=== PATIENT | female | born 1955 | race American Indian/Alaskan Native ===

== ENCOUNTER 2019-01-26 12:19 | Outpatient (CLI) | payer BC ==
--- NOTE | 2019-01-29 11:28 | Mammography Report ---
BILATERAL DIGITAL SCREENING MAMMOGRAMS WITH CAD INDICATION: Screening. COMPARISONS: 05/28/2015 and 05/06/2014 FINDINGS: Craniocaudal and mediolateral oblique views of both breasts were obtained using 2-D digital acquisition. In addition to standard review, the examination was analyzed for possible abnormalities using a computer-assisted detection device (iCAD). The breast tissue is heterogeneously dense, which may obscure small masses. A left asymmetry with architectural distortion on the CC view requires additional imaging. No suspici ous calcifications. The right breast is negative. IMPRESSION: Left asymmetry requiring additional imaging. Recommend recall for left true lateral, rolled CC and sp ot compression CC views and left breast ultrasound if needed. BI-RADS CATEGORY 0: INCOMPLETE - NEED ADDITIONAL IMAGING EVALUATION AND/OR PRIOR MAMMOGRAMS FOR COMP ARISON Information is entered into a reminder system for a target due date for the next mammogram. The resul ts and recommendations were sent to the patient by mail. Signer Name: Raphael Thakur MD Signed: 01/29/2019 11:23 AM Workstation Name: [id number]
== END 2019-01-26 12:20 | disposition home or self-care (01) ==
LOC: MAMMO 12:19
PROVIDERS: ATTEND Internal Medicine
DX: Z12.31 Encounter for screening mammogram for malignant neoplasm of breast (principal); E78.00 Pure hypercholesterolemia, unspecified; K21.9 Gastro-esophageal reflux disease without esophagitis; I11.0 Hypertensive heart disease with heart failure; I50.9 Heart failure, unspecified
CPT/HCPCS: 77067

== ENCOUNTER 2019-06-22 10:07 | Outpatient (CLI) | payer BC ==
--- NOTE | 2019-06-22 12:04 | Mammography Report ---
DIGITAL DIAGNOSTIC MAMMOGRAM WITH CAD, -- 06/22/2019 INDICATION: Questionable developing architectural distortion left breast. [reason for study] TECHNIQUE: Digital left mammographic imaging was performed. This examination was interpreted with the benefit of Computer-aided Detection analysis. COMPARISON: Screening mammogram dated 01/26/2019 and prior mammograms dated 05/28/2015, 05/27/2014 and 05/06/2014 FINDINGS: Breast Density: The breasts are heterogeneously dense, which may obscure small masses. Architectural distortion resolves on additional imaging. No focal asymmetric density persists on elias tional imaging. There is no change when compared with prior mammograms dating back to 2013. IMPRESSION: Follow up recommendation: Routine yearly BI-RADS Category 1: Negative. A "normal" or negative report should not discourage follow up or biopsy of a clinically significant f inding. A written summary of these findings will be mailed to the patient. The patient will be entered into a mammography reporting system which will generate a reminder letter for the patient's next appointmen t at the appropriate interval. According to the [employer], yearly mammograms are recommended starting at age 40 and continuing as long as a woman is in good health. Breast MRI is recommended for women with an ruel roximately 20-25% or greater lifetime risk of breast cancer, including women with a strong family his tory of breast or ovarian cancer and women who have been treated for Hodgkin's disease. Signer Name: Haleigh Ordonez MD Signed: 06/22/2019 12:00 PM Workstation Name: [id number]
== END 2019-06-22 10:08 | disposition home or self-care (01) ==
LOC: US 10:07
PROVIDERS: ATTEND Family Medicine
DX: R92.8 Other abnormal and inconclusive findings on diagnostic imaging of breast (principal); I11.0 Hypertensive heart disease with heart failure; I50.9 Heart failure, unspecified; I25.10 Atherosclerotic heart disease of native coronary artery without angina pectoris; E78.5 Hyperlipidemia, unspecified; K21.9 Gastro-esophageal reflux disease without esophagitis; Z87.891 Personal history of nicotine dependence

== ENCOUNTER 2020-02-03 07:32 | Emergency (ER) | payer BC ==
[2020-02-03 08:50] LABS: Basophils % (Auto) 0.4 % (0.0-1.8); Eosinophils # (Auto) 0.1 K/mm3 (0.0-0.4); Eosinophils % (Auto) 2.4 % (0.0-4.3); Hematocrit 38.7 % (30.3-42.9); Hemoglobin 12.8 gm/dl (10.1-14.3); Lymphocytes # (Auto) 1.4 K/mm3 (1.2-5.4); Lymphocytes % (Auto) 27.1 % (13.4-35.0); Mean Corpuscular HGB Conc 33 % (30-34); Mean Corpuscular Volume 91 fl (79-97); Monocytes # (Auto) 0.4 K/mm3 (0.0-0.8); Monocytes % (Auto) 7.9 % (0.0-7.3); Platelet Count 278 K/mm3 (140-440); Red Blood Count 4.24 M/mm3 (3.65-5.03); Red Cell Distribution Width 13.9 % (13.2-15.2)
[2020-02-03 09:32] LABS: Alanine Aminotransferase 16 units/L (7-56); Albumin 4.1 g/dL (3.9-5); BUN/Creatinine Ratio 11; Blood Urea Nitrogen 10 mg/dL (7-17); Calcium 9.6 mg/dL (8.4-10.2); Hemolysis Index 11
--- NOTE | 2020-02-03 10:45 | XRay Report ---
CHEST 2 VIEWS INDICATION / CLINICAL INFORMATION: Shortness of breath since . COMPARISON: 11/08/15. FINDINGS: SUPPORT DEVICES: None. HEART / MEDIASTINUM: The heart is mildly enlarged. There is mild prominence of the central pulmonary vessels. LUNGS / PLEURA: There is mild to moderate diffuse interstitial lung disease, new since the prior exam . There is more confluent mild patchy parenchymal disease in the lower lung zones, greater on the rig ht. No significant pleural effusion. No pneumothorax. ADDITIONAL FINDINGS: No significant additional findings. IMPRESSION: Findings characteristic of mild congestive heart failure. Signer Name: Jitendra Nina MD Signed: 02/03/2020 10:41 AM Workstation Name: [id number]
[2020-02-03] MEDS ORDERED: FUROSEMIDE 40 MG/4 ML INJ IV ONE (15:32)
--- NOTE | 2020-02-03 15:36 | Emergency Department Report ---
ED Shortness of Breath HPI - General Chief Complaint: Dyspnea/Respdistress Stated Complaint: SOB Time Seen by Provider: 02/03/20 15:09 Source: patient Mode of arrival: Ambulatory Limitations: No Limitations - History of Present Illness Initial Comments: 64 years old female with history of congestive heart failure and hypertension. Patient presented to the ER complaining of shortness of breath and cough for the last 4 days. Patient stated that symptoms worse when she lay flat. Patient denied any chest pain, fever, chills, runny nose or congestion. Patient also denied any nausea or vomiting. Patient is not taking any diuretics at this moment. MD Complaint: shortness of breath, cough -: days(s) (4) Known History Of: congestive heart failure - Related Data Home Medications Medication Instructions Recorded Confirmed Last Taken Clopidogrel [Plavix] 75 mg PO QDAY 11/08/15 05/19/17 05/19/17 Aspirin [Adult Low Dose Aspirin EC] 81 mg PO QDAY 05/19/17 05/19/17 05/19/17 AtorvaSTATin [Lipitor] 20 mg PO QDAY 05/19/17 05/19/17 05/19/17 carvediloL [Coreg] 25 mg PO BID 05/19/17 05/19/17 05/19/17 Previous Rx's Medication Instructions Recorded Last Taken Type Pantoprazole [Protonix TAB] 40 mg PO Q12H #60 tablet 05/21/17 Unknown Rx cloNIDine-TTS PATCH [Catapres-Tts 0.2 mg TD Q7D #4 patch 05/21/17 Unknown Rx 0.2mg Patch] Allergies Allergy/AdvReac Type Severity Reaction Status Date / Time No Known Allergies Allergy Unverified 03/21/13 15:53 ED Review of Systems ROS: Stated complaint: SOB Other details as noted in HPI Comment: All other systems reviewed and negative Constitutional: denies: chills Respiratory: cough, orthopnea, shortness of breath, SOB with exertion, SOB at rest. denies: wheezing Cardiovascular: denies: chest pain, palpitations Gastrointestinal: denies: abdominal pain, nausea, vomiting Musculoskeletal: denies: back pain ED Past Medical Hx - Past Medical History Previous Medical History?: Yes Hx Hypertension: Yes Hx Heart Attack/AMI: Yes (2006) Hx Congestive Heart Failure: Yes Hx Diabetes: No Hx Renal Disease: Yes (lupus nephritis) Hx Seizures: No Hx Asthma: No Hx COPD: No Additional medical history: ulcer, lupus - Surgical History Past Surgical History?: Yes Hx Coronary Stent: Yes Additional Surgical History: thyroid surgery - Social History Smoking Status: Former Smoker Substance Use Type: Alcohol - Medications Home Medications: Home Medications Medication Instructions Recorded Confirmed Last Taken Type Clopidogrel [Plavix] 75 mg PO QDAY 11/08/15 05/19/17 05/19/17 History Aspirin [Adult Low Dose Aspirin EC] 81 mg PO QDAY 05/19/17 05/19/17 05/19/17 History AtorvaSTATin [Lipitor] 20 mg PO QDAY 05/19/17 05/19/17 05/19/17 History carvediloL [Coreg] 25 mg PO BID 05/19/17 05/19/17 05/19/17 History Pantoprazole [Protonix TAB] 40 mg PO Q12H #60 tablet 05/21/17 Unknown Rx cloNIDine-TTS PATCH [Catapres-Tts 0.2 mg TD Q7D #4 patch 05/21/17 Unknown Rx 0.2mg Patch] ED Physical Exam - General Limitations: No Limitations General appearance: alert, in no apparent distress - Head Head exam: Present: atraumatic, normocephalic, normal inspection - Eye Eye exam: Present: normal appearance - ENT ENT exam: Present: normal exam, normal orophraynx, mucous membranes moist - Neck Neck exam: Present: normal inspection, full ROM. Absent: tenderness, meningismus, lymphadenopathy, thyromegaly - Respiratory Respiratory exam: Present: normal lung sounds bilaterally - Cardiovascular Cardiovascular Exam: Present: regular rate, normal rhythm, normal heart sounds - GI/Abdominal GI/Abdominal exam: Present: soft, normal bowel sounds. Absent: distended, tenderness, guarding, rebound, rigid, organomegaly, mass, bruit, pulsatile mass, hernia - Extremities Exam Extremities exam: Present: normal inspection, full ROM, normal capillary refill. Absent: pedal edema, calf tenderness - Back Exam Back exam: Present: normal inspection, full ROM. Absent: CVA tenderness (R), CVA tenderness (L) - Neurological Exam Neurological exam: Present: alert, oriented X3, CN II-XII intact, normal gait, reflexes normal. Absent: motor sensory deficit - Psychiatric Psychiatric exam: Present: normal mood - Skin Skin exam: Present: warm, intact, normal color ED Course Vital Signs 02/03/20 02/03/20 02/03/20 07:42 11:46 15:09 Temperature 97.8 F Pulse Rate 87 64 Respiratory 22 18 Rate Blood Pressure 189/114 145/64 Blood Pressure [Left] O2 Sat by Pulse 98 98 Oximetry 02/03/20 02/03/20 15:10 17:44 Temperature 97.9 F Pulse Rate 81 81 Respiratory 18 Rate Blood Pressure 185/107 Blood Pressure 189/115 [Left] O2 Sat by Pulse Oximetry ED Medical Decision Making - Lab Data Result diagrams: 02/03/20 08:04 02/03/20 08:04 - EKG Data -: EKG Interpreted by Sc EKG shows normal: sinus rhythm Rate: normal - EKG Data Interpretation: no acute changes - Radiology Data Radiology results: report reviewed - Medical Decision Making 64 years old female with history of congestive heart failure and hypertension. Patient presented to the ER complaining of shortness of breath and cough for the last 4 days. Patient stated that symptoms worse when she lay flat. Patient denied any chest pain, fever, chills, runny nose or congestion. Patient also denied any nausea or vomiting. Patient is not taking any diuretics at this moment. EKG showed no ST elevation. Chest x-ray showed mild congestion secondary to congestive heart failure. Patient oxygen saturation remained above 97% on room air. Labs reviewed and is unremarkable. Patient received Lasix 60 mg IV in the emergency room and clonidine for her malignant hypertension. Patient strongly advised to follow-up with her drive away driver and her primary care physician in the next 2 to 3 days and to return to the ER if she develop any new symptoms Critical care attestation.: If time is entered above; I have spent that time in minutes in the direct care of this critically ill patient, excluding procedure time. ED Disposition Clinical Impression: Accelerated essential hypertension, CHF exacerbation Disposition: -01 TO HOME OR SELFCARE Is pt being admited?: No Condition: Stable Instructions: Hypertension (ED) Referrals: PRIMARY CARE, [Primary Care Provider] - 3-5 Days
[2020-02-03] MEDS ORDERED: NITROGLYCERIN 0.4 MG TAB SUBL SL ONE (17:36)
[2020-02-03] MEDS ORDERED: cloNIDine 0.2 MG TAB PO ONE (17:39)
[2020-02-03 19:22] VITALS: BP 163/94
== END 2020-02-03 19:33 | disposition home or self-care (01) ==
LOC: ED 07:32
DX: I11.0 Hypertensive heart disease with heart failure (principal); I50.9 Heart failure, unspecified; I25.2 Old myocardial infarction; Z87.891 Personal history of nicotine dependence; Z95.818 Presence of other cardiac implants and grafts; Z98.890 Other specified postprocedural states; Z79.899 Other long term (current) drug therapy
CPT/HCPCS: 36415; 71046; 80053; 83880; 84484; 85025; 93005; 96374; 99284; J1940

== ENCOUNTER 2020-02-19 05:12 | Emergency (ER) | payer BC ==
--- NOTE | 2020-02-19 06:31 | XRay Report ---
CHEST 1 VIEW 0627 INDICATION / CLINICAL INFORMATION: Chest Pain COMPARISON: 02/03/2020 FINDINGS: SUPPORT DEVICES: None HEART / MEDIASTINUM: No significant abnormality. LUNGS / PLEURA: Increased interstitial markings are again noted diffusely. The basilar infiltrates se en previously have improved however. No definite new infiltrates are seen. No pneumothorax. ADDITIONAL FINDINGS: No significant additional findings. IMPRESSION: Improved infiltrates Signer Name: Esteban Hemphill MD Signed: 02/19/2020 6:26 AM Workstation Name: [id number]
[2020-02-19 06:36] LABS: Basophils % (Auto) 0.4 % (0.0-1.8); Eosinophils # (Auto) 0.2 K/mm3 (0.0-0.4); Eosinophils % (Auto) 2.8 % (0.0-4.3); Hematocrit 34.8 % (30.3-42.9); Hemoglobin 11.9 gm/dl (10.1-14.3); Lymphocytes # (Auto) 1.7 K/mm3 (1.2-5.4); Lymphocytes % (Auto) 23.2 % (13.4-35.0); Mean Corpuscular HGB Conc 34 % (30-34); Mean Corpuscular Volume 91 fl (79-97); Monocytes # (Auto) 0.6 K/mm3 (0.0-0.8); Monocytes % (Auto) 7.9 % (0.0-7.3); Platelet Count 247 K/mm3 (140-440); Red Blood Count 3.85 M/mm3 (3.65-5.03); Red Cell Distribution Width 13.4 % (13.2-15.2)
[2020-02-19 06:41] LABS: BUN/Creatinine Ratio 11; Blood Urea Nitrogen 10 mg/dL (7-17); Calcium 9.1 mg/dL (8.4-10.2); Hemolysis Index 2
--- NOTE | 2020-02-19 13:31 | Emergency Department Report ---
ED Shortness of Breath HPI - General Chief Complaint: Dyspnea/Respdistress Stated Complaint: SHORTNESS OF BREATH Time Seen by Provider: 02/19/20 12:23 Source: patient Mode of arrival: Ambulatory Limitations: No Limitations - History of Present Illness Initial Comments: Chief complaint: "I am worried about my health." Mrs. Horowitz is a 64-year-old female with history of congestive heart failure hypertension who presents with shortness of breath with exertion. She states that her symptoms improved after she was evaluated by my colleague February 03 14 days ago. My colleague prescribed furosemide and potassium tablets. He provided 7-day prescription. Her PCP was uncomfortable prescribing this medication. PCP referred her to a shuttlecock feather trimmer. Appointment has been set for February 28 in 10 days. Patient requests prescription for furosemide. While at rest she is comfortable. She has shortness of breath when she lays flat. She denies chest pain. She has had mild cough no wheezing. No fever. MD Complaint: shortness of breath -: Gradual, days(s) (Several days) Severity: mild Consistency: constant Improves With: rest Worsens With: lying flat Known History Of: congestive heart failure - Related Data Home Medications Medication Instructions Recorded Confirmed Last Taken Clopidogrel [Plavix] 75 mg PO QDAY 11/08/15 05/19/17 05/19/17 Aspirin [Adult Low Dose Aspirin EC] 81 mg PO QDAY 05/19/17 05/19/17 05/19/17 AtorvaSTATin [Lipitor] 20 mg PO QDAY 05/19/17 05/19/17 05/19/17 carvediloL [Coreg] 25 mg PO BID 05/19/17 05/19/17 05/19/17 Previous Rx's Medication Instructions Recorded Last Taken Type Pantoprazole [Protonix TAB] 40 mg PO Q12H #60 tablet 05/21/17 Unknown Rx cloNIDine-TTS PATCH [Catapres-Tts 0.2 mg TD Q7D #4 patch 05/21/17 Unknown Rx 0.2mg Patch] Furosemide [Lasix TAB] 40 mg PO QDAY #7 tablet 02/03/20 Unknown Rx Potassium Chloride [K-Dur] 10 meq PO QDAY #7 tablet 02/03/20 Unknown Rx Furosemide [Lasix TAB] 40 mg PO QDAY 10 Days #10 tablet 02/19/20 Unknown Rx Potassium Chloride [K-Dur] 10 meq PO QDAY 10 Days #10 tablet 02/19/20 Unknown Rx Allergies Allergy/AdvReac Type Severity Reaction Status Date / Time No Known Allergies Allergy Unverified 03/21/13 15:53 ED Review of Systems ROS: Stated complaint: SHORTNESS OF BREATH Other details as noted in HPI Comment: All other systems reviewed and negative Constitutional: denies: fever, malaise Respiratory: cough, shortness of breath, wheezing Cardiovascular: denies: chest pain Gastrointestinal: denies: abdominal pain, nausea, vomiting ED Past Medical Hx - Past Medical History Previous Medical History?: Yes Hx Hypertension: Yes Hx Heart Attack/AMI: Yes (2006 Stent x 1 on Plavix) Hx Congestive Heart Failure: Yes Hx Diabetes: No Hx Renal Disease: Yes (lupus nephritis) Hx Seizures: No Hx Asthma: No Hx COPD: No Additional medical history: ulcer, lupus - Surgical History Past Surgical History?: Yes Hx Coronary Stent: Yes Additional Surgical History: thyroid surgery - Social History Smoking Status: Never Smoker - Medications Home Medications: Home Medications Medication Instructions Recorded Confirmed Last Taken Type Clopidogrel [Plavix] 75 mg PO QDAY 11/08/15 05/19/17 05/19/17 History Aspirin [Adult Low Dose Aspirin EC] 81 mg PO QDAY 05/19/17 05/19/17 05/19/17 History AtorvaSTATin [Lipitor] 20 mg PO QDAY 05/19/17 05/19/17 05/19/17 History carvediloL [Coreg] 25 mg PO BID 05/19/17 05/19/17 05/19/17 History Pantoprazole [Protonix TAB] 40 mg PO Q12H #60 tablet 05/21/17 Unknown Rx cloNIDine-TTS PATCH [Catapres-Tts 0.2 mg TD Q7D #4 patch 05/21/17 Unknown Rx 0.2mg Patch] Furosemide [Lasix TAB] 40 mg PO QDAY #7 tablet 02/03/20 Unknown Rx Potassium Chloride [K-Dur] 10 meq PO QDAY #7 tablet 02/03/20 Unknown Rx Furosemide [Lasix TAB] 40 mg PO QDAY 10 Days #10 tablet 02/19/20 Unknown Rx Potassium Chloride [K-Dur] 10 meq PO QDAY 10 Days #10 tablet 02/19/20 Unknown Rx ED Physical Exam - General Limitations: No Limitations General appearance: alert, in no apparent distress, other (Patient laying semisupine, comfortable) - Head Head exam: Present: atraumatic, normocephalic - Eye Eye exam: Present: normal appearance - ENT ENT exam: Present: mucous membranes moist - Neck Neck exam: Present: normal inspection, full ROM - Respiratory Respiratory exam: Present: normal lung sounds bilaterally. Absent: respiratory distress, wheezes, rales, rhonchi - Cardiovascular Cardiovascular Exam: Present: regular rate, normal rhythm, normal heart sounds. Absent: systolic murmur, diastolic murmur, rubs, gallop - GI/Abdominal GI/Abdominal exam: Present: soft, normal bowel sounds. Absent: distended, tenderness, guarding, rebound - Extremities Exam Extremities exam: Present: normal inspection - Neurological Exam Neurological exam: Present: alert, oriented X3 - Psychiatric Psychiatric exam: Present: normal affect, normal mood - Skin Skin exam: Present: warm, dry, intact, normal color. Absent: rash ED Course Vital Signs 02/19/20 02/19/20 05:17 06:03 Temperature 97.9 F Pulse Rate 90 88 Respiratory 16 Rate Blood Pressure 200/118 Blood Pressure 193/106 [Right] O2 Sat by Pulse 99 Oximetry ED Medical Decision Making - Lab Data Result diagrams: 02/19/20 06:03 02/19/20 06:03 Laboratory Results - last 24 hr 02/19/20 02/19/20 02/19/20 06:03 06:03 08:34 WBC 7.3 RBC 3.85 Hgb 11.9 Hct 34.8 MCV 91 MCH 31 MCHC 34 RDW 13.4 Plt Count 247 Lymph % (Auto) 23.2 [place] % (Auto) 7.9 H Eos % (Auto) 2.8 Baso % (Auto) 0.4 Lymph # 1.7 [place] # 0.6 Eos # 0.2 Baso # 0.0 Seg Neutrophils % 65.7 Seg Neutrophils # 4.8 Sodium 141 Potassium 4.0 Chloride 104.6 Carbon Dioxide 23 Anion Gap 17 BUN 10 Creatinine 0.9 Estimated GFR > 60 BUN/Creatinine Ratio 11 Glucose 97 Calcium 9.1 Troponin T < 0.010 < 0.010 - Radiology Data Radiology results: report reviewed Chest radiograph: Interstitial edema which is improved from previous exam - Medical Decision Making Mrs. Horowitz presents with acute congestive heart failure exacerbation. Her medical regimen has not been optimized. Lupus has been documented. Patient states that she is unclear if she has lupus or lupus nephritis. I have prescribed 10 tablets of furosemide. Also prescribed 10 tablets of potassium chloride. She will be evaluated by customer success specialist in 10 days. Critical care attestation.: If time is entered above; I have spent that time in minutes in the direct care of this critically ill patient, excluding procedure time. ED Disposition Clinical Impression: Acute exacerbation of CHF (congestive heart failure), Hypertensive urgency Disposition: DC- TO HOME OR SELFCARE Is pt being admited?: No Does the pt Need Aspirin: No Condition: Stable Instructions: Heart Failure (ED) Prescriptions: Potassium Chloride [K-Dur] 10 meq PO QDAY 10 Days #10 tablet Furosemide [Lasix TAB] 40 mg PO QDAY 10 Days #10 tablet Referrals: ORLANDO HARRIS MD [Staff Physician] - 3-5 Days Forms: Work/School Release Form(ED)
[2020-02-19 19:31] VITALS: BP 191/109
== END 2020-02-19 14:00 | disposition home or self-care (01) ==
LOC: ED 05:12
DX: I11.0 Hypertensive heart disease with heart failure (principal); I50.9 Heart failure, unspecified; I25.2 Old myocardial infarction; I16.0 Hypertensive urgency; Z79.899 Other long term (current) drug therapy
CPT/HCPCS: 36415; 71045; 80048; 84484; 85025; 93005